=== PATIENT | male | born 1975 | race American Indian/Alaskan Native ===

== ENCOUNTER 2018-12-12 08:17 | Outpatient (CLI) | payer OTHER | END 2018-12-12 08:18 | disposition home or self-care (01) | LOC: PF 08:17 | PROVIDERS: ATTEND Internal Medicine | DX: R03.0 Elevated blood-pressure reading, without diagnosis of hypertension (principal); G47.33 Obstructive sleep apnea (adult) (pediatric) | CPT/HCPCS: 94010; 94729 ==